=== PATIENT | female | born 1970 | race Caucasian/White ===

== ENCOUNTER 2023-09-12 09:10 | Emergency (ER) | payer MEDICAID ==
[~2023-09-12] VITALS: Ht 154.9 cm; Wt 61.2 kg
[2023-09-12 09:21] VITALS: BP 189/88; TEMP 98
[2023-09-12] MEDS ORDERED: SULF1TAB48 PO (09:52)
[2023-09-12 10:01] VITALS: O2SAT 98
== END 2023-09-12 10:02 | disposition home or self-care (01) ==
LOC: ER 09:16
DX: L03.012 Cellulitis of left finger (principal); Z79.899 Other long term (current) drug therapy

== ENCOUNTER 2023-10-04 09:59 | Inpatient (IN) | payer MEDICAID ==
[~2023-10-04] VITALS: Ht 154.9 cm; Wt 56.7 kg
[~2023-10-04 09:59] MED LIST: SULF1TAB48 PO
[2023-10-04 11:17] LABS: ALANINE AMINOTRANSFERASE 41 U/L (12-78); ALBUMIN 3.6 g/dL (3.4-5.0); ALKALINE PHOSPHATASE 323 U/L (46-116); ASPARTATE AMINOTRANSFERASE < 5 U/L (15-37); BILIRUBIN,DIRECT 0.2 mg/dL (0.0-0.2); BILIRUBIN,TOTAL 0.5 mg/dL (0.2-1.0); CALCIUM, SERUM 9.8 mg/dL (8.5-10.1); CARBON DIOXIDE 20 mmol/L (21-32); CHLORIDE 89 mmol/L (98-107); CREATININE 0.8 mg/dL (0.6-1.3); LIPASE 14 U/L (16-77); POTASSIUM 4.3 mmol/L (3.5-5.1); SODIUM SERUM 126 mmol/L (136-145); TOTAL PROTEIN, SERUM 8.6 g/dL (6.4-8.2); UREA NITROGEN, BLOOD 12 mg/dL (7-18)
[2023-10-04 11:18] LABS: GLUCOSE 680 mg/dL (74-106)
[2023-10-04 11:21] LABS: BASOPHILS % (AUTO) 0.7 % (0.0-2.0); EOSINOPHILS # (AUTO) 0.1 K/uL (0.0-0.7); EOSINOPHILS % (AUTO) 1.3 % (0.0-6.0); HEMATOCRIT 42 % (33-45); HEMOGLOBIN 14.7 g/dL (11.5-14.8); LYMPHOCYTES # (AUTO) 2.5 K/uL (0.8-4.8); LYMPHOCYTES % (AUTO) 42.4 % (20.0-44.0); MEAN CORPUSCULAR HEMOGLOBIN 33 PG (26.0-33.0); MEAN CORPUSCULAR HGB CONC 35 g/dl (31.0-36.0); MEAN CORPUSCULAR VOLUME 93 fL (82-100); MONOCYTES # (AUTO) 0.7 K/uL (0.1-1.30); MONOCYTES % (AUTO) 11.5 % (2.0-12.0); NEUTROPHILS # (AUTO) 2.6 K/uL (1.8-8.9); NEUTROPHILS % (AUTO) 44.1 % (43.0-81.0); PLATELET COUNT (AUTO) 228 K/uL (150-450); WHITE BLOOD COUNT (AUTO) 5.9 K/uL (4.3-11.0)
[2023-10-04] MEDS: KETOROLAC TROMETHAMINE 15 MG/ML VIAL IV ONE (11:35)
[2023-10-04] MEDS: IV NS 0.9% 1,000 ML BAG IV ONE (12:30)
[2023-10-04] MEDS: INSULIN REGULAR, HUMAN 100 UNIT/ML 10 ML VIAL SQ ONE (12:30)
[2023-10-04] MEDS ORDERED: INSULIN REGULAR, HUMAN 100 UNIT/ML 10 ML VIAL ONE (13:35)
[2023-10-04 16:00] VITALS: BP 137/94; TEMP 98.6; O2SAT 98
[2023-10-04] MEDS ORDERED: DEXTROSE 50%-WATER 50 ML DISP.SYRIN IV PRN (17:00)
[2023-10-04] MEDS ORDERED: MAGNESIUM HYDROXIDE 30 ML UDC PO PRN (17:00)
[2023-10-04] MEDS ORDERED: ZOLPIDEM TARTRATE 5 MG TABLET PO PRN (17:00)
[2023-10-04] MEDS ORDERED: ACETAMINOPHEN 325 MG TABLET PO PRN (17:00)
[2023-10-04] MEDS ORDERED: MAG HYDROX/AL HYDROX/SIMETH 30 ML UDC PO PRN (17:00)
[2023-10-04] MEDS ORDERED: ONDANSETRON HCL/PF 4 MG/2 ML VIAL IVP PRN (17:00)
[2023-10-04] MEDS ORDERED: Z GUARD REMEDY 4 OZ OINT TP PRN (17:00)
[2023-10-04] MEDS: BLOOD SUGAR DIAGNOSTIC 1 EACH STRIP VI SCH (17:34)
[2023-10-04] MEDS: INSULIN REGULAR, HUMAN 100 UNIT/ML 3 ML VIAL SQ PRN (17:44)
[2023-10-04 20:00] VITALS: BP 141/86; TEMP 98.4; O2SAT 98
[2023-10-04] MEDS: *INSULIN REGULAR(HUMULIN R)HUM 100 UNIT/ML VIAL SQ PRN (22:20)
[2023-10-05] VITALS: BP 144/88; TEMP 98; O2SAT 98
[2023-10-05] MEDS: IV NS 0.9% 1,000 ML IV PRN (02:15)
[2023-10-05 04:00] VITALS: BP 143/80; TEMP 98.7; O2SAT 99
[2023-10-05 07:19] LABS: BASOPHILS # (AUTO) 0.1 K/uL (0.0-0.2); BASOPHILS % (AUTO) 0.9 % (0.0-2.0); EOSINOPHILS # (AUTO) 0.2 K/uL (0.0-0.7); EOSINOPHILS % (AUTO) 3.1 % (0.0-6.0); HEMATOCRIT 37 % (33-45); HEMOGLOBIN 13.2 g/dL (11.5-14.8); LYMPHOCYTES # (AUTO) 2.7 K/uL (0.8-4.8); LYMPHOCYTES % (AUTO) 47.6 % (20.0-44.0); MEAN CORPUSCULAR HEMOGLOBIN 33 PG (26.0-33.0); MEAN CORPUSCULAR HGB CONC 36 g/dl (31.0-36.0); MEAN CORPUSCULAR VOLUME 92 fL (82-100); MONOCYTES # (AUTO) 0.6 K/uL (0.1-1.30); MONOCYTES % (AUTO) 11.4 % (2.0-12.0); NEUTROPHILS # (AUTO) 2.1 K/uL (1.8-8.9); PLATELET COUNT (AUTO) 187 K/uL (150-450); RED BLOOD CELL COUNT(AUTO) 3.99 MIL/uL (4.0-5.2); WHITE BLOOD COUNT (AUTO) 5.6 K/uL (4.3-11.0)
[2023-10-05 08:00] VITALS: BP 136/88; TEMP 98.6; O2SAT 99
[2023-10-05 08:13] LABS: CALCIUM, SERUM 8.7 mg/dL (8.5-10.1); CREATININE 0.6 mg/dL (0.6-1.3); MAGNESIUM 1.8 mg/dL (1.8-2.4); PHOSPHORUS 3.2 mg/dL (2.5-4.9); POTASSIUM 3.9 mmol/L (3.5-5.1)
[2023-10-05 08:25] LABS: THYROID STIMULATING HORMONE 6.003 uIU/mL (0.358-3.74)
[2023-10-05] MEDS: INSULIN GLARGINE, 100 UNIT/ML CARTRIDGE SQ SCH (09:15)
[2023-10-05 12:00] VITALS: BP 149/97; TEMP 98.2; O2SAT 98
[2023-10-05 16:00] VITALS: BP 129/80; TEMP 98.6; O2SAT 98
[2023-10-05 20:00] VITALS: BP 142/95; TEMP 98.4; O2SAT 99
[2023-10-05] MEDS: SIMVASTATIN 10 MG TABLET PO SCH (21:18)
[2023-10-06] VITALS: BP 137/90; TEMP 98.5; O2SAT 98
[2023-10-06 04:00] VITALS: BP 140/92; TEMP 98.2; O2SAT 99
[2023-10-06 06:58] LABS: CALCIUM, SERUM 8.6 mg/dL (8.5-10.1); CREATININE 0.5 mg/dL (0.6-1.3); MAGNESIUM 1.9 mg/dL (1.8-2.4)
[2023-10-06 08:00] VITALS: BP 137/88; TEMP 99.3; O2SAT 97
[2023-10-06 09:10] LABS: THYROID STIMULATING HORMONE 15.351 uIU/mL (0.358-3.74); URIC ACID 3.1 mg/dL (2.6-7.2)
[2023-10-06 12:00] VITALS: BP 148/95; TEMP 98.2; O2SAT 98
[2023-10-06] MEDS: POTASSIUM CHLORIDE 20 MEQ TAB.PRT.SR PO SCH (12:00)
[2023-10-06] MEDS: LEVOTHYROXINE SODIUM 75 MCG TABLET PO SCH (13:13)
[2023-10-06] MEDS ORDERED: LEVO75TA PO (15:47)
[2023-10-06] MEDS ORDERED: SIMV10TA98 PO (15:47)
[2023-10-06] MEDS ORDERED: INSU100V7 SQ (15:47)
[2023-10-06] MEDS ORDERED: METF-440 PO (15:47)
[2023-10-06 16:00] VITALS: BP 139/80; TEMP 98.1; O2SAT 99
[2023-10-06] MEDS ORDERED: METFORMIN 500 MG TABLET PO SCH (17:00)
== END 2023-10-06 17:12 | disposition home or self-care (01) | DRG 420 ==
LOC: ER 09:59 → TELE1 15:57
PROVIDERS: ADMIT Student in an Organized Health Care Education/Training Program; ATTEND Student in an Organized Health Care Education/Training Program
DX: E11.10 Type 2 diabetes mellitus with ketoacidosis without coma (principal); E87.3 Alkalosis; E03.9 Hypothyroidism, unspecified; E78.5 Hyperlipidemia, unspecified; F10.91 Alcohol use, unspecified, in remission; F17.200 Nicotine dependence, unspecified, uncomplicated; E86.9 Volume depletion, unspecified
CPT/HCPCS: 36415; 80048-TC; 80061-TC; 80076-TC; 82962-TC; 83690-TC; 83735-TC; 84100-TC; 84439-TC; 84443-TC; 84550-TC; 85025-TC; A4223; G0378; J1815; J7030